=== PATIENT | male | born 1950 | race Caucasian/White ===

== ENCOUNTER → 2021-03-03 | Outpatient (CLI) | payer OTHER ==
[~2021-03-03] MED LIST: IBUPROFEN 200200 M1 PO; PEPCID20 MG PO
--- NOTE | 2021-03-03 13:50 | 2DMMODE ---
[facility] [place] [address] 2 D/M-MODE ECHOCARDIOGRAM Name: TRI WELSH Room #: REG KRISHNAJackson Corley#: [id number] Admission: 03/03/21 Attend Phys: Maricruz Zapata DO Discharge: Date of : 48 Report #: [id number] THIS REPORT FOR: cc: Maricruz Zapata Shanna R. DO Santiago, Patrick MD [facility] ~ APPROVED REPORT Study performed: 03/03/2021 12:23:33 EXAM: Comprehensive 2D, Doppler, and color-flow Echocardiogram Patient Location: Out-Patient Room #: 2 Status: routine BSA: 2.28 HR: 85 bpm BP: 136/76 mmHg Rhythm: Atrial Fibrillation Other Information Study Quality: Good Indications Atrial Fibrillation Hypertension/HDD 2D Dimensions RVDd: 32.46 mm IVSd: 11.11 (7-11mm) LVOT Diam: 19.68 (18-24mm) LVDd: 47.45 mm PWd: 11.11 (7-11mm) Ascending Ao: 36.19 (22-36mm) LVDs: 29.78 (25-40mm) Left Atrium: 44.01 (27-40mm) Aortic Root: 33.03 mm IVC: 15.00 mm Volumes Left Atrial Volume (Systole) Single Plane 4CH: 55.13 mL Single Plane 2CH: 87.97 mL LA ESV Index: 33.00 mL/m2 Aortic Valve AoV Peak Dakota.: 1.50 m/s AO Peak Gr.: 9.83 mmHg LVOT Max P.73 mmHg LVOT Max V: 0.96 m/s [facility] [address] [place] [address] 2 D/M-MODE ECHOCARDIOGRAM Name: TRI WELSH Room #: REG [facility]#: [id number] Admission: 03/03/21 Attend Phys: Maricruz Zapata, Discharge: Date of : 48 Report #: [id number] OLIVERIO Vmax: 1.95 cm2 Pulmonary Valve PV Peak Dakota.: 0.99 m/s PV Peak Gr.: 3.89 mmHg Tricuspid Valve TR Peak Dakota.: 3.04 m/s TR Peak Gr.: 36.98 mmHg PA Pressure: 42.00 mmHg Left Ventricle The left ventricle is normal size. Mild concentric left ventricular hypertrophy. The left ventricular systolic function is normal. The left ventricular ejection fraction is within the normal range. LVEF is 55-60%. This study is not technically sufficient to allow evaluation of the LV diastolic function due to atrial fibrillation. Right Ventricle The right ventricle is normal size. The right ventricular systolic function is normal. Atria Left atrium is at the upper limits of normal. Right atrium is at the upper limits of normal. Aortic Valve The aortic valve is normal in structure. Aortic valve is calcified. Trace aortic regurgitation. There is no aortic valvular stenosis. Mitral Valve The mitral valve is normal in structure. Mild mitral regurgitation. No evidence of mitral valve stenosis. Tricuspid Valve The tricuspid valve is normal in structure. There is mild tricuspid regurgitation. Estimated PAP 42mmHg. There is moderate pulmonary hypertension. Pulmonic Valve The pulmonary valve is normal in structure. Trace pulmonic regurgitation. Great Vessels The aortic root is normal in size. IVC is normal in size and [facility] [place] [address] 2 D/M-MODE ECHOCARDIOGRAM Name: TRI WELSH [facility] #: [facility] [id number] Admission: 03/03/21 Attend Phys: Maricruz Zapata, Discharge: Date of : 48 Report #: [id number] collapses >50% with inspiration. Pericardium There is no pericardial effusion. <Conclusion> Normal left ventricular size Mild concentric hypertrophy more prominent in the septum/outflow track Ejection fraction 55% Normal right ventricular size/function Atrial size in the upper limits of normal Color-flow Doppler study was performed of the aortic/mitral/tricuspid/pulmonary valve Trace aortic valve insufficiency Mild mitral valve insufficiency Mild tricuspid valve insufficiency Pulmonary systolic pressure estimated 49 mmHg No pericardial effusion Normal aortic root size. <ELECTRONICALLY SIGNED> By: Donato Lima MD, [facility] 03/03/21 1349 [id number] Donato Lima MD, FACC /INF
== END ==
LOC: CV 11:06
PROVIDERS: ATTEND Internal Medicine
DX: I08.3 Combined rheumatic disorders of mitral, aortic and tricuspid valves (principal); I48.19 Other persistent atrial fibrillation